=== PATIENT | female | born 1970 | race Asian ===

== ENCOUNTER 2016-12-10 19:42 | Emergency (ER) | payer BC ==
[~2016-12-10] VITALS: Ht 152.4 cm; Wt 59.0 kg
[2016-12-10] MEDS ORDERED: AMLODIPINE BENAZEPRIL (19:51)
[2016-12-10] MEDS ORDERED: JANU50TA25 (19:51)
[2016-12-10] MEDS ORDERED: GLYB5TA (19:51)
[2016-12-10] MEDS ORDERED: OMEP40CA2 (19:51)
[2016-12-10] MEDS ORDERED: ATOR1TAB19 (19:51)
[2016-12-10] MEDS ORDERED: diphenhydrAMINE INJ 50MG/ML VIAL (J1200) IV STA (21:32)
[2016-12-10] MEDS ORDERED: dexameTHASONE 20 MG/5 ML VIAL (J1100) IV ONE (21:45)
[2016-12-10 22:08] VITALS: BP 151/87
[2016-12-10] MEDS: diphenhydrAMINE 25 MG CAP PO ONE (22:14)
== END 2016-12-10 22:24 | disposition home or self-care (01) ==
LOC: M ED 22:15
DX: R22.0 Localized swelling, mass and lump, head (principal); T78.40XA Allergy, unspecified, initial encounter; X58.XXXA Exposure to other specified factors, initial encounter; Y92.89 Other specified places as the place of occurrence of the external cause; Y93.89 Activity, other specified; Y99.8 Other external cause status; E11.9 Type 2 diabetes mellitus without complications; K21.9 Gastro-esophageal reflux disease without esophagitis; Z79.899 Other long term (current) drug therapy; Z79.84 Long term (current) use of oral hypoglycemic drugs; E78.00 Pure hypercholesterolemia, unspecified; I10 Essential (primary) hypertension

== ENCOUNTER → 2017-03-18 | Outpatient (REF) | payer BC ==
[~2017-03-18] MED LIST: AMLODIPINE BENAZEPRIL; ATOR1TAB19; GLYB5TA; JANU50TA25; OMEP40CA2
[2017-03-18 12:33] LABS: ALBUMIN 4.1 GM/DL (3.2-5.2); ALBUMIN/GLOBULIN RATIO 1.05 (1.00-1.93); ALKALINE PHOSPHATASE 83 U/L (45-117); ALT/SGPT 67 U/L (12-78); ANION GAP 8 MEQ/L (8-16); AST/SGOT 42 U/L (15-37); BILIRUBIN,TOTAL 0.3 MG/DL (0.2-1.0); BLOOD UREA NITROGEN 14 MG/DL (7-18); CALCIUM LEVEL 9.5 MG/DL (8.5-10.1); CARBON DIOXIDE LEVEL 28 MEQ/L (21-32); CHLORIDE LEVEL 100 MEQ/L (98-107); CHOLESTEROL LEVEL 163 MG/DL (<200); CREATININE FOR GFR 0.73 MG/DL (0.55-1.02); GLOMERULAR FILTRATION RATE > 60.0 (>58); GLUCOSE, FASTING 214 MG/DL (70-105); POTASSIUM SERUM 4.7 MEQ/L (3.5-5.1); SODIUM LEVEL 136 MEQ/L (136-145); TRIGLYCERIDES LEVEL 268 MG/DL (<150)
== END ==
LOC: M LABDRAW1 11:42
PROVIDERS: ATTEND Internal Medicine Endocrinology, Diabetes & Metabolism
DX: E11.65 Type 2 diabetes mellitus with hyperglycemia (principal); E04.0 Nontoxic diffuse goiter; I10 Essential (primary) hypertension; E55.9 Vitamin D deficiency, unspecified